=== PATIENT | male | born 2005 | race Caucasian/White ===

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

== ENCOUNTER 2023-01-08 18:59 | Emergency (ER) | payer OTHER, SELFPAY ==
[2023-01-08 19:40] VITALS: BP 146/89; PULSE 76; RESP 18; TEMP 36.8; O2SAT 99; BMI 24.4
[2023-01-08 19:48] LABS: UTC Influenza A Antigen Negative (Negative)
[2023-01-08 19:49] LABS: UTC Influenza B Antigen Negative (Negative)
[2023-01-08 19:49] LABS: UTC Strep Screen (Rapid) Negative (Negative)
--- NOTE | 2023-01-08 20:15 | EXP.UTC ---
Discharge Plan Disposition Patient Disposition: Home, Self-Care Condition: Good Prescriptions Prescriptions: New azithromycin [Zithromax Z-Dimitri] 250 mg tablet See Rx Instructions .ROUTE .COMPLEX 5 Days Qty: 6 0RF Rx Instructions: For 250 mg dose pack: take 500 mg today (day 1), then 250 mg for 4 days (days 2-5) methylprednisolone [Medrol (Dimitri)] 4 mg tablets,dose pack See Rx Instructions .Route .COMPLEX 6 Days Qty: 21 0RF Rx Instructions: taper pack; ondansetron 4 mg tablet,disintegrating 4 mg PO Q8H PRN (Reason: nausea and vomiting) Qty: 10 0RF benzonatate 100 mg capsule 100 mg PO TID PRN (Reason: cough) Qty: 30 0RF No Action ondansetron 4 MG tablet,disintegrating 4 mg PO Q8HP PRN (Reason: Nausea) Qty: 9 0RF benzonatate 100 MG capsule 100 mg PO TIDP PRN (Reason: Cough) Qty: 30 0RF Referrals Follow up/Referrals: Quinn Zuleta MD [Primary Care Provider] - See instructions Activity Restrictions/Add. Instructions Additional Instructions/Restrictions: *Monitor Temp, Over the counter Motrin or Tylenol as directed/as needed Tylenol every 4 hours and Motrin every 6 hours (as long as your family doctor has told you that you can take it) for fever or pain. and straight to ER if unable to lower temp less than 101.0 after medication given *Warm salt water gargles may help to soothe the throat *Throat Lozenges? *Warm fluids like tea with honey may help to soothe the throat? *Sleep elevated *Humidifier/Vaporizer Your throat swab was sent for culture. Those results are typically sent to your primary care. Be sure to follow up in 2-3 days with your family doctor/primary care physician if no improvement so they can review those result and treat if necessary. If you don?t have a primary care doctor, I recommend you get one but in the mean time, you will have to return to a walk in clinic Follow up IMMEDIATELY for new or worsening symptoms or no Noticeable improvement over the next 48-72 hours. 911 for difficulty breathing or swallowing You were tested for today for Upper Respiratory Panel with COVID19 your test result should be back in the next 24-48 hours, you may check your results on the [facility] My Health Portal Clinical Impressions Clinical Impression: Pharyngitis Qualifiers: Pharyngitis/tonsillitis etiology: unspecified etiology Qualified Code(s): J02.9 - Acute pharyngitis, unspecified Stand Alone Forms Stand Alone Forms: Work/School Release Instructions Patient Instructions: Sore Throat, Cough, DI for Fever (Symptom) -- Adult Discharge ED Provider: Bailey Krueger [facility] [place] HPI General Stated complaint: Sore throat, vomiting Mode of Arrival: Ambulatory Source of Information: Patient Limitations: No Limitations Time Seen by Provider: 01/08/23 20:15 Description of Symptoms (Recalled from Triage Doc. by RN): PATIENT C/O SORE THROAT, BODY ACHES, HEADACHE, VOMITING, CHEST CONGESTION SINCE YESTERDAY HEENT Symptoms (Recalled from RN notes): Yes Resp Symptoms (Recalled from RN notes): Yes Skin Symptoms (Recalled from RN notes): No MS Symptoms (Recalled from RN notes): No Functional Status (Recalled from RN notes): WNL History of Present Illness Provider Complaint: Patient states that his throat has been scratchy for several days States that started hurting yesterday and woke up this morning and couldnt talk States that his throat hurts, headache, cough feels like it is trying to move into his chest and had some vomiting on and off Related Data Previous Rx's Medication Instructions Recorded benzonatate 100 mg capsule 100 mg PO TIDP PRN Cough #30 caps 05/20/20 ondansetron 4 mg disintegrating 4 mg PO Q8HP PRN Nausea ##9 05/20/20 tablet azithromycin 250 mg tablet See Rx Instructions PO .COMPLEX 5 01/08/23 (Zithromax Z-Dimitri) days #6 tabs benzonatate 100 mg capsule 100 mg PO TID PRN cough #30 caps 01/08/23 methylprednisolone 4 mg tablets in S
[2023-01-08 20:25] VITALS: BP 146/89; PULSE 76; RESP 18; TEMP 36.8; O2SAT 99
== END 2023-01-08 20:27 | disposition home or self-care (01) ==
PROVIDERS: Emergency Provider Nurse Practitioner; PCP Family Medicine
DX: J02.9 Acute pharyngitis, unspecified (principal); R51.9 Headache, unspecified; R11.10 Vomiting, unspecified
CPT/HCPCS: 87804; 87880; 99212; 99214; G0463

== ENCOUNTER 2024-09-30 15:10 | Emergency (ER) | payer SELFPAY ==
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
[2024-09-30 15:11] VITALS: BP 145/84; PULSE 81; RESP 18; TEMP 36.1; O2SAT 100; O2SAT 97; BMI 25.1
--- NOTE | 2024-09-30 15:16 | ECG_ITS ---
APPROVED REPORT Exam: Resting ECG HR:88 bpm ECG Measurements Heart Rate 88 AXES RI 124 P 68 QRSd 102 QRS 37 QT 356 T 46 QTc 402 Conclusion SINUS RHYTHM WITH OCCASIONAL VENTRICULAR PREMATURE COMPLEXES No STEMI Electronically signed by : MARIANA MOULTON, 09/30/2024 15:58:40
[2024-09-30 15:20] VITALS: BP 145/84; PULSE 72; O2SAT 100
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
--- NOTE | 2024-09-30 15:32 | PC.NURSE ---
xray at [facility]
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
[2024-09-30 15:53] LABS: Basophils % 0.5 % (0.1-2.0); Eosinophils # 0.1 Kmm3 (0.0-0.4); Eosinophils % 0.8 % (0.1-12.0); Hematocrit 41.4 % (42.0-52.0); Hemoglobin 14.8 g/dL (14.1-18.0); Immature Granulocytes # 0.08 10^3uL; Immature Granulocytes % 0.9 %; Lymphocytes % 22.5 % (10-50); Mean Corpuscular HGB Conc 35.7 g/dL (31.8-35.4); Mean Corpuscular Hemoglobin 31.3 pg (27.0-31.2); Mean Corpuscular Volume 87.5 fl (80-94); Mean Platelet Volume 9.2 fl (7.4-10.4); Monocytes # 0.6 K/mm3 (0.1-1.0); Monocytes % 6.9 % (1.7-9.3); Neutrophils # 6.1 K/mm3 (1.8-7.8); Neutrophils % 68.4 % (37.0-80.0); Nucleated Red Blood Cells # 0 10^3/uL; Nucleated Red Blood Cells % 0 %; Platelet Count 253 K/mm3 (142-424); Red Blood Count 4.73 M/mm3 (4.60-6.20); Red Cell Distribution Width 12.9 % (11.5-17.5); Red Cell Distribution Width-SD 41.4 fL; White Blood Count 8.9 K/mm3 (4.8-10.8)
[2024-09-30 16:18] LABS: Albumin Level 4.9 g/dl (3.5-5.0); Chloride 106 mmol/L (98-107); Potassium 3.4 mmoL/L (3.5-5.1); Sodium 138 mmol/L (136-145)
[2024-09-30 16:19] LABS: Alkaline Phosphatase 77 U/L (38-126); Anion Gap 11.4 mEq/L (5-15); Bilirubin,Total 0.5 mg/dl (0.2-1.3); Blood Urea Nitrogen 13 mg/dl (9-20); Carbon Dioxide 24 mmol/L (22.0-30.0); Creatinine Clearance Estimated 150 mL/min (50-200); Estimated Glomerular Filt Rate 107 ml/min (>60); GFR (African American) 129 ML/MIN (>60)
[2024-09-30] MEDS: KETOROLAC 30MG/ML VIAL 15 MG IV (16:19)
[2024-09-30] MEDS: ACETAMINOPHEN 500MG TAB 1000 MG PO (16:19)
[2024-09-30 16:21] LABS: Alanine Aminotransferase 37 U/L (12-78); Aspartate Amino Transferase 34 U/L (17-59); Calcium 9.8 mg/dl (8.4-10.2); Globulin 2.5 g/dL (1.3-3.2); Glucose 97 mg/dl (74-100); Total Protein,Serum 7.4 g/dl (6.3-8.2)
--- NOTE | 2024-09-30 16:27 | PC.NURSE ---
DR MOULTON AT BEDSIDE TO UPDATE PATIENT AND FAMILY
[2024-09-30 16:31] LABS: Activated Partial Thrombo Time 27.3 seconds (22.8-30.6); INR 1.07 (0.9-1.1); Prothrombin Time 11.8 seconds (10.1-12.5)
[2024-09-30] MEDS: METHOCARBAMOL 500MG TABLET 500 MG PO (16:34)
[2024-09-30] MEDS: ONDANSETRON 4MG/2ML VIAL 4 MG IV (16:35)
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
--- NOTE | 2024-09-30 16:47 | PC.NURSE ---
pt is gone to ct
[2024-09-30 16:58] VITALS: BP 120/77; PULSE 71; PULSE 79; RESP 18; O2SAT 100
--- NOTE | 2024-09-30 16:58 | PC.NURSE ---
pt returned from radiology.
[2024-09-30 17:00] VITALS: BP 130/73; PULSE 81; O2SAT 100
[2024-09-30 17:30] VITALS: BP 123/70; PULSE 78; O2SAT 100
--- NOTE | 2024-09-30 18:03 | PC.NURSE ---
PT AMBULATORY AROUND UNIT WITHOUT DIFFICULTY
[2024-09-30 18:10] VITALS: BP 138/78; PULSE 78; RESP 16; TEMP 36.8; O2SAT 100
== END 2024-09-30 18:14 | disposition home or self-care (01) ==
PROVIDERS: Emergency Provider Emergency Medicine
DX: M79.652 Pain in left thigh (principal); M25.512 Pain in left shoulder; M79.644 Pain in right finger(s); S39.012A Strain of muscle, fascia and tendon of lower back, initial encounter; V49.40XA Driver injured in collision with unspecified motor vehicles in traffic accident, initial encounter; Y92.410 Unspecified street and highway as the place of occurrence of the external cause
CPT/HCPCS: 71045; 72125; 72128; 72131; 73000; 73030; 73060; 73130; 73502; 73552; 80053; 85025; 85610; 85730; 93005; 96374; 96375; 99285; J1885; J2405

== ENCOUNTER 2024-12-13 23:36 | Emergency (ER) | payer MEDICAID, SELFPAY ==
--- NOTE | 2024-12-13 23:38 | ED_ITS ---
Discharge Plan Disposition Patient Disposition: Home, Self-Care Prescriptions Prescriptions: No Action azithromycin [Zithromax Z-Dimitri] 250 mg tablet See Rx Instructions .ROUTE .COMPLEX 5 Days Qty: 6 0RF Rx Instructions: For 250 mg dose pack: take 500 mg today (day 1), then 250 mg for 4 days (days 2-5) methylprednisolone [Medrol (Dimitri)] 4 mg tablets,dose pack See Rx Instructions .Route .COMPLEX 6 Days Qty: 21 0RF Rx Instructions: taper pack; ondansetron 4 mg tablet,disintegrating 4 mg PO Q8H PRN (Reason: nausea and vomiting) Qty: 10 0RF benzonatate 100 mg capsule 100 mg PO TID PRN (Reason: cough) Qty: 30 0RF ondansetron 4 MG tablet,disintegrating 4 mg PO Q8HP PRN (Reason: Nausea) Qty: 9 0RF benzonatate 100 MG capsule 100 mg PO TIDP PRN (Reason: Cough) Qty: 30 0RF ketorolac 10 mg tablet 10 mg PO Q8H PRN (Reason: pain) Qty: 12 0RF methocarbamol 750 mg tablet 750 mg PO Q8H PRN (Reason: pain) Qty: 20 0RF Referrals Follow up/Referrals: Provider,Referral, MD [Primary Care Provider, Medical] - See instructions Activity Restrictions/Add. Instructions Additional Instructions/Restrictions: Recommend calling and scheduling an urgent appointment with an eye doctor for reassessment. Especially if your symptoms are worsening or do not improve. [facility] has an office in [place] that you can call. Clinical Impressions Clinical Impression: Corneal abrasion Qualifiers: Encounter type: initial encounter Laterality: left Qualified Code(s): S05.02XA - Injury of conjunctiva and corneal abrasion without foreign body, left eye, initial encounter Print Language Print Language: Senegalese Discharge ED Provider: Prabhjot Chapin General Adult HPI General Chief complaint: Eye Problems Stated complaint: L eye irritation Time Seen by Provider: 12/13/24 23:38 History of Present Illness HPI narrative: 19-year-old male without significant past medical history presents for left eye pain. He was woodworking when he felt something fly into his eye. It has been irritated since then. That happened earlier today. He reports that his vision is still good but it hurts to look at light. Does not wear contacts. Related Data Previous Rx's ?Medication ?Instructions ?Recorded benzonatate 100 mg capsule 100 mg PO TIDP PRN Cough #3 0 caps 05/20/20 ondansetron 4 mg disintegrating 4 mg PO Q8HP PRN Nause a ##9 05/20/20 tablet azithromycin 250 mg tablet See Rx Instructions PO .COM PLEX 5 01/08/23 (Zithromax Z-Dimitri) days #6 tabs benzonatate 100 mg capsule 100 mg PO TID PRN cough #30 caps 01/08/23 methylprednisolone 4 mg tablets in See Rx Instructions .Route 01/08/23 a dose pack (Medrol (Dimitri)) .COMPLEX 6 days #21 tabs ondansetron 4 mg disintegrating 4 mg PO Q8H PRN nausea and 01/08/23 tablet vomiting #10 tabs ketorolac 10 mg tablet 10 mg PO Q8H PRN pain #12 ta bs 09/30/24 methocarbamol 750 mg tablet 750 mg PO Q8H PRN pain #20 tabs 09/30/24 Allergies Allergy/AdvReac Type Severity Reaction Status Date / Time Penicillins Allergy Rash Verified 05/20/20 18:51 [facility] Disclaimer: The information contained in this section may have been updated after the patient was seen, as this information can be updated by other users. Social History Smoking Status: Never smoker alcohol intake: never substance use type: denies use current occupational status: other Travel in the last 8 weeks?: None Have you lived/traveled outside [place] in past 30 days?: No Contact w/someone who lives/traveled outside [place] past 30 days?: No Exposure to someone with infectious disease in past 14 days?: No Do you have a fever (greater than 100.4 F or 38 C)?: No Have you tested positive for COVID-19?: No Exposed to someone with COVID-19 in past 14 days?: No Do you have a sore throat?: No Do you have a cough?: No Do you have any weakness?: No Do you have any diarrhea?: No Are you experiencing any unusual bleeding?: No Do you have any muscle aches/pain?: No Do you have any abdominal pain?: No Are you experiencing loss of taste or smell?: No ROS Obtained: Yes All systems reviewed & no additional complaints except as documented Physical Exam General General appearance: alert and in no apparent distress Head Head exam: atraumatic and normocephalic Eye Eye exam: Present PERRL, EOMI, conjunctival redness and other (Left eye: No corneal foreign body on visual examination, there is ovoid fluorescein uptake at the 12 o'clock position. No foreign body noted on lid eversion.) ENT ENT exam: Present normal oropharynx and normal external ear exam Neck Neck exam: Present normal inspection and full ROM Chest Chest inspection: Present normal inspection and symmetric chest wall rise; Absent tenderness Respiratory Respiratory exam: Present normal lung sounds bilaterally; Absent respiratory distress Cardiovascular Cardiovascular exam: Present regular rate and normal rhythm Abdominal Exam Abdominal exam: Present soft; Absent distention, tenderness or guarding Extremities Exam Extremities exam: Present normal inspection; Absent edema or joint swelling Back Exam Back exam: Present normal inspection; Absent tenderness Neurological Exam Neurological exam: Present alert and oriented X3; Absent motor sensory deficit Psychiatric Psychiatric exam: Present normal affect and normal mood Skin Skin exam: Present warm, dry and normal color Lymphatic Lymphatic Findings: no adenopathy Medical Decision Making Medical Records Medical records reviewed: Yes I reviewed the patient's medical records. Screening: Per USPSTF and CDC recommendations, given the prevalence of disease in our region, it is our hospital?s policy to screen for HIV and viral Hepatitis for all patients aged 18 and over and those with ongoing risk factors. David Inquiry Pt receiving controlled substance: No David was queried for this patient: No Vital Signs: 12/13/24 23:42 12/14/24 00:00 12/14/24 00:15 Temperature 99.0 F Temperature Source Oral Pulse Rate 96 H 88 Pulse Rate [Left Radial] 90 Respiratory Rate 16 Blood Pressure 145/85 H 141/83 H Blood Pressure [Left Arm] 149/102 H Blood Pressure Mean [Left Arm] 117 Blood Pressure Source [Left Arm] Automatic Cuff Blood Pressure Position 02 Sat by Pulse Oximetry 100 100 100 Oxygen Delivery Method Room Air 12/14/24 00:59 Temperature 99 F Temperature Source Oral Pulse Rate 62 Pulse Rate [Left Radial] Respiratory Rate 16 Blood Pressure 141/83 H Blood Pressure [Left Arm] Blood Pressure Mean [Left Arm] Blood Pressure Source [Left Arm] Blood Pressure Position Sitting 02 Sat by Pulse Oximetry Oxygen Delivery Method Room Air Lab Data Lab results reviewed: Yes I reviewed the patient's lab results. Medical Decision Narrative: 19-year-old male without significant past medical history presents for possible left eye foreign body. History was obtained via interactive discussion with patient. On arrival, patient is [afebrile, hemodynamically stable, satting appropriately, alert, oriented x4, GCS 15], moving all extremities spontaneously. Full physical exam performed and significant for Left eye: No corneal foreign body on visual examination, there is ovoid fluorescein uptake at the 12 o'clock position. No foreign body noted on lid eversion. Negative Gena sign. Differential includes but is not limited to corneal abrasion, corneal ulcer, eye foreign body. Presentation seems most consistent with corneal abrasion. The eye was copiously irrigated at bedside, tetracaine and fluorescein were utilized in examination. Patient was given erythromycin ointment. I recommended he call and follow-up with an general labor forklift operator as soon as possible for further assessment. The ovoid area of fluorescein uptake was somewhat unusual in appearance. I discussed with him that we could send him to for further assessment tonight, patient reports that he does not wish to proceed with transfer at this time. Procedures Risk/Benefits of Procedure(s) Were Explained: Yes Critical Care Critical Care Time Critical Care Time: No
[2024-12-13 23:42] VITALS: BP 149/102; PULSE 90; RESP 16; TEMP 37.2; O2SAT 100; BMI 25.7
[2024-12-14] VITALS: BP 145/85; PULSE 96; O2SAT 100
[2024-12-14 00:15] VITALS: BP 141/83; PULSE 88; O2SAT 100
[2024-12-14 00:59] VITALS: BP 141/83; PULSE 62; RESP 16; TEMP 37.2; O2SAT 98
== END 2024-12-14 01:00 | disposition home or self-care (01) ==
LOC: ER 23:45
PROVIDERS: Emergency Provider Emergency Medicine
DX: S05.00XA Injury of conjunctiva and corneal abrasion without foreign body, unspecified eye, initial encounter (principal)
CPT/HCPCS: 99283